=== PATIENT | male | born 1975 | race Caucasian/White ===

== ENCOUNTER → 2023-05-18 | Outpatient (CLI) | payer OTHER | END | disposition home or self-care (01) | LOC: LAB 15:04 → LAB SHORT 15:04 | DX: B35.3 Tinea pedis (principal); L03.116 Cellulitis of left lower limb | CPT/HCPCS: 87070; 87075; 87077; 87147; 87186; 87205 ==

== ENCOUNTER → 2024-03-16 | Outpatient (CLI) | payer OTHER | LOC: PLD 07:13 → LAB SHORT 07:13 | DX: D48.5 Neoplasm of uncertain behavior of skin (principal) | CPT/HCPCS: 88312 ==

== ENCOUNTER → 2024-03-29 | Outpatient (CLI) | payer OTHER | LOC: LAB 18:31 → LAB SHORT 18:31 | DX: L03.116 Cellulitis of left lower limb (principal) | CPT/HCPCS: 87070; 87077; 87147; 87186; 87205 ==

== ENCOUNTER 2024-06-15 18:42 | Emergency (ER) | payer OTHER ==
[~2024-06-15] VITALS: Ht 177.8 cm; Wt 97.5 kg
[2024-06-15 19:13] VITALS: BP 179/98
[2024-06-15] MEDS ORDERED: DEPO-TESTO200 MG/18 IM (19:14)
== END 2024-06-15 22:12 | disposition left against medical advice (07) ==
LOC: ER 18:42
DX: Z76.0 Encounter for issue of repeat prescription (principal); Z79.899 Other long term (current) drug therapy
CPT/HCPCS: 99281

== ENCOUNTER 2024-07-22 18:56 | Emergency (ER) | payer OTHER ==
[~2024-07-22] VITALS: Ht 177.8 cm; Wt 97.5 kg
[~2024-07-22 18:56] MED LIST: DEPO-TESTO200 MG/18 IM
[2024-07-22 19:01] VITALS: BP 152/85
[2024-07-22] MEDS ORDERED: Methadone HCL 10 MG TAB PO ONE (19:15)
== END 2024-07-22 19:36 | disposition home or self-care (01) ==
LOC: ER 18:56
DX: Z76.0 Encounter for issue of repeat prescription (principal)
CPT/HCPCS: 99281; A9270

== ENCOUNTER 2024-07-23 14:20 | Emergency (ER) | payer OTHER ==
[~2024-07-23] VITALS: Ht 177.8 cm; Wt 97.5 kg
[2024-07-23] MEDS ORDERED: Methadone HCL 10 MG TAB PO ONE (14:45)
[2024-07-23 14:46] VITALS: BP 143/87
== END 2024-07-23 14:58 ==
LOC: ER 14:20
DX: Z76.89 Persons encountering health services in other specified circumstances (principal); F11.90 Opioid use, unspecified, uncomplicated; Z79.899 Other long term (current) drug therapy
CPT/HCPCS: 99281; A9270

== ENCOUNTER 2024-08-08 12:34 | Emergency (ER) | payer OTHER ==
[~2024-08-08] VITALS: Ht 177.8 cm; Wt 97.5 kg
[2024-08-08 12:46] VITALS: BP 142/65
[2024-08-08] MEDS ORDERED: Methadone HCL 10 MG TAB PO ONE (14:15)
== END 2024-08-08 14:27 | disposition home or self-care (01) ==
LOC: ER 12:34
DX: Z76.89 Persons encountering health services in other specified circumstances (principal); F11.20 Opioid dependence, uncomplicated; Z79.890 Hormone replacement therapy; Z59.89 Other problems related to housing and economic circumstances
CPT/HCPCS: 99281; A9270

== ENCOUNTER 2024-09-06 01:19 | Day surgery (SDC) | payer OTHER ==
[2024-09-06] MEDS ORDERED: Lidocaine HCl 4% Cream 5 GM ONE (14:22)
== END 2024-09-06 23:00 | disposition home or self-care (01) ==
LOC: WOUND 01:19
DX: L97.812 Non-pressure chronic ulcer of other part of right lower leg with fat layer exposed (principal); L97.412 Non-pressure chronic ulcer of right heel and midfoot with fat layer exposed; L97.422 Non-pressure chronic ulcer of left heel and midfoot with fat layer exposed; I87.2 Venous insufficiency (chronic) (peripheral); I73.9 Peripheral vascular disease, unspecified; M79.7 Fibromyalgia; Z87.891 Personal history of nicotine dependence
CPT/HCPCS: A6213; A6214; A9270; G0463

== ENCOUNTER 2024-09-18 16:52 | Emergency (ER) | payer OTHER ==
[~2024-09-18] VITALS: Ht 177.8 cm; Wt 104.3 kg
[2024-09-18 17:13] VITALS: BP 182/104
[2024-09-18] MEDS ORDERED: Methadone HCL 10 MG TAB PO ONE (17:35)
== END 2024-09-18 17:46 | disposition home or self-care (01) ==
LOC: ER 16:52
DX: F11.90 Opioid use, unspecified, uncomplicated (principal); Z76.0 Encounter for issue of repeat prescription
CPT/HCPCS: 99281; A9270

== ENCOUNTER 2024-09-26 03:52 | Day surgery (SDC) | payer OTHER | END 2024-09-26 23:10 | disposition home or self-care (01) | LOC: WOUND 03:52 | DX: L97.812 Non-pressure chronic ulcer of other part of right lower leg with fat layer exposed (principal); L97.412 Non-pressure chronic ulcer of right heel and midfoot with fat layer exposed; L97.422 Non-pressure chronic ulcer of left heel and midfoot with fat layer exposed; I87.2 Venous insufficiency (chronic) (peripheral); I73.9 Peripheral vascular disease, unspecified | CPT/HCPCS: A6213; A6214; G0463 ==

== ENCOUNTER 2024-10-03 14:02 | Emergency (ER) | payer OTHER ==
[~2024-10-03] VITALS: Ht 177.8 cm; Wt 95.2 kg
[2024-10-03 14:05] VITALS: BP 158/98
[2024-10-03] MEDS ORDERED: Methadone HCL 10 MG TAB PO ONE (15:05)
== END 2024-10-03 15:40 | disposition home or self-care (01) ==
LOC: ER 14:02
DX: Z76.89 Persons encountering health services in other specified circumstances (principal); F11.91 Opioid use, unspecified, in remission; Z79.899 Other long term (current) drug therapy
CPT/HCPCS: 99281; A9270

== ENCOUNTER 2024-10-05 02:28 | Day surgery (SDC) | payer OTHER ==
[2024-10-05] MEDS ORDERED: Lidocaine HCl 4% Cream 5 GM ONE (14:00)
== END 2024-10-05 23:00 | disposition home or self-care (01) ==
LOC: WOUND 02:28
DX: L97.812 Non-pressure chronic ulcer of other part of right lower leg with fat layer exposed (principal); L97.412 Non-pressure chronic ulcer of right heel and midfoot with fat layer exposed; L97.422 Non-pressure chronic ulcer of left heel and midfoot with fat layer exposed; I87.2 Venous insufficiency (chronic) (peripheral); I73.9 Peripheral vascular disease, unspecified
CPT/HCPCS: A6213; A6214; A9270

== ENCOUNTER 2024-10-19 03:59 | Day surgery (SDC) | payer OTHER ==
[2024-10-19] MEDS ORDERED: Lidocaine HCl 4% Cream 5 GM ONE (12:55)
== END 2024-10-19 23:00 | disposition home or self-care (01) ==
LOC: WOUND 03:59
DX: L97.812 Non-pressure chronic ulcer of other part of right lower leg with fat layer exposed (principal); L97.412 Non-pressure chronic ulcer of right heel and midfoot with fat layer exposed; L97.422 Non-pressure chronic ulcer of left heel and midfoot with fat layer exposed; I87.2 Venous insufficiency (chronic) (peripheral); I73.9 Peripheral vascular disease, unspecified
CPT/HCPCS: A6213; A9270

== ENCOUNTER 2024-10-26 01:55 | Day surgery (SDC) | payer OTHER ==
[2024-10-26] MEDS ORDERED: Lidocaine HCl 4% Cream 5 GM ONE (12:45)
== END 2024-10-26 23:00 | disposition home or self-care (01) ==
LOC: WOUND 01:55
DX: L97.812 Non-pressure chronic ulcer of other part of right lower leg with fat layer exposed (principal); L97.412 Non-pressure chronic ulcer of right heel and midfoot with fat layer exposed; L97.422 Non-pressure chronic ulcer of left heel and midfoot with fat layer exposed; I87.2 Venous insufficiency (chronic) (peripheral); I73.9 Peripheral vascular disease, unspecified
CPT/HCPCS: A6213; A9270

== ENCOUNTER 2024-11-02 02:38 | Day surgery (SDC) | payer OTHER ==
[2024-11-02] MEDS ORDERED: Lidocaine HCl 4% Cream 5 GM ONE ×2 (12:50→13:24)
[2024-11-02] MEDS ORDERED: Silver Nitr/Potassium Nitrate 1 EA APPL ONE (13:25)
== END 2024-11-02 23:00 | disposition home or self-care (01) ==
LOC: WOUND 02:38
DX: L97.812 Non-pressure chronic ulcer of other part of right lower leg with fat layer exposed (principal); L97.312 Non-pressure chronic ulcer of right ankle with fat layer exposed; L97.322 Non-pressure chronic ulcer of left ankle with fat layer exposed; I87.2 Venous insufficiency (chronic) (peripheral); I73.9 Peripheral vascular disease, unspecified
CPT/HCPCS: A6213; A9270

== ENCOUNTER 2024-11-16 11:20 | Day surgery (SDC) | payer OTHER ==
[2024-11-16] MEDS ORDERED: Lidocaine HCl 4% Cream 5 GM ONE (14:07)
== END 2024-11-16 23:00 | disposition home or self-care (01) ==
LOC: WOUND 11:20
DX: L97.812 Non-pressure chronic ulcer of other part of right lower leg with fat layer exposed (principal); L97.312 Non-pressure chronic ulcer of right ankle with fat layer exposed; L97.322 Non-pressure chronic ulcer of left ankle with fat layer exposed; I87.2 Venous insufficiency (chronic) (peripheral); I73.9 Peripheral vascular disease, unspecified
CPT/HCPCS: A6213; A9270

== ENCOUNTER 2024-11-22 03:18 | Day surgery (SDC) | payer OTHER ==
[2024-11-22] MEDS ORDERED: Lidocaine HCl 4% Cream 5 GM ONE (13:16)
== END 2024-11-22 23:00 | disposition home or self-care (01) ==
LOC: WOUND 03:18
DX: L97.812 Non-pressure chronic ulcer of other part of right lower leg with fat layer exposed (principal); L97.312 Non-pressure chronic ulcer of right ankle with fat layer exposed; L97.322 Non-pressure chronic ulcer of left ankle with fat layer exposed; I87.2 Venous insufficiency (chronic) (peripheral); I73.9 Peripheral vascular disease, unspecified
CPT/HCPCS: A6213; A9270; G0463

== ENCOUNTER 2024-12-15 02:52 | Day surgery (SDC) | payer OTHER ==
[2024-12-15] MEDS ORDERED: Lidocaine HCl 4% Cream 5 GM ONE (14:37)
== END 2024-12-15 23:00 | disposition home or self-care (01) ==
LOC: WOUND 02:52
DX: L97.812 Non-pressure chronic ulcer of other part of right lower leg with fat layer exposed (principal); L97.412 Non-pressure chronic ulcer of right heel and midfoot with fat layer exposed; L97.422 Non-pressure chronic ulcer of left heel and midfoot with fat layer exposed; I87.2 Venous insufficiency (chronic) (peripheral); I73.9 Peripheral vascular disease, unspecified
CPT/HCPCS: A6213; A9270

== ENCOUNTER 2024-12-30 15:20 | Emergency (ER) | payer OTHER ==
[~2024-12-30] VITALS: Ht 177.8 cm; Wt 99.8 kg
[2024-12-30 15:23] VITALS: BP 163/92
[2024-12-30] MEDS ORDERED: Methadone HCL 10 MG TAB PO ONE (15:30)
== END 2024-12-30 15:30 | disposition home or self-care (01) ==
LOC: ER 15:20
DX: Z76.0 Encounter for issue of repeat prescription (principal); Z79.899 Other long term (current) drug therapy
CPT/HCPCS: 99281; A9270

== ENCOUNTER 2025-01-23 15:26 | Emergency (ER) | payer OTHER ==
[~2025-01-23] VITALS: Ht 177.8 cm; Wt 95.2 kg
[2025-01-23 15:33] VITALS: BP 155/96
== END 2025-01-23 16:38 | disposition home or self-care (01) ==
LOC: ER 15:26
DX: Z76.89 Persons encountering health services in other specified circumstances (principal); Z79.890 Hormone replacement therapy; Z79.891 Long term (current) use of opiate analgesic
CPT/HCPCS: 99281; A9270

== ENCOUNTER 2025-02-01 15:13 | Emergency (ER) | payer OTHER ==
[~2025-02-01] VITALS: Ht 177.8 cm; Wt 117.0 kg
[2025-02-01 15:47] VITALS: BP 137/97
== END 2025-02-01 17:03 | disposition home or self-care (01) ==
LOC: ER 15:13
DX: Z76.89 Persons encountering health services in other specified circumstances (principal); Z79.899 Other long term (current) drug therapy
CPT/HCPCS: 99281; A9270

== ENCOUNTER → 2025-03-20 | Outpatient (CLI) | payer OTHER | END | disposition home or self-care (01) | LOC: LAB SHORT 13:30 → LAB 13:30 | DX: L97.919 Non-pressure chronic ulcer of unspecified part of right lower leg with unspecified severity (principal) | CPT/HCPCS: 87070; 87075; 87077; 87186; 87205 ==

== ENCOUNTER 2025-04-07 18:12 | Emergency (ER) | payer OTHER ==
[~2025-04-07] VITALS: Ht 177.8 cm; Wt 93.0 kg
[2025-04-07 19:04] VITALS: BP 170/108
== END 2025-04-07 20:53 | disposition home or self-care (01) ==
LOC: ER 18:12
DX: F11.90 Opioid use, unspecified, uncomplicated (principal); Z76.0 Encounter for issue of repeat prescription
CPT/HCPCS: 99281; A9270

== ENCOUNTER 2025-04-09 01:22 | Day surgery (SDC) | payer OTHER ==
[2025-04-09] MEDS ORDERED: Lidocaine HCl 4% Cream 5 GM ONE (13:20)
== END 2025-04-09 23:00 | disposition home or self-care (01) ==
LOC: WOUND 01:22
DX: I87.313 Chronic venous hypertension (idiopathic) with ulcer of bilateral lower extremity (principal); L97.822 Non-pressure chronic ulcer of other part of left lower leg with fat layer exposed; L97.812 Non-pressure chronic ulcer of other part of right lower leg with fat layer exposed; L97.322 Non-pressure chronic ulcer of left ankle with fat layer exposed; I87.2 Venous insufficiency (chronic) (peripheral)
CPT/HCPCS: A9270; G0463

== ENCOUNTER 2025-04-12 00:31 | Day surgery (SDC) | payer OTHER | END 2025-04-12 22:30 | disposition home or self-care (01) | LOC: WOUND 00:31 | DX: I87.313 Chronic venous hypertension (idiopathic) with ulcer of bilateral lower extremity (principal); L97.922 Non-pressure chronic ulcer of unspecified part of left lower leg with fat layer exposed; L97.912 Non-pressure chronic ulcer of unspecified part of right lower leg with fat layer exposed; I87.2 Venous insufficiency (chronic) (peripheral); Z72.0 Tobacco use | CPT/HCPCS: A9270 ==

== ENCOUNTER 2025-04-26 03:02 | Day surgery (SDC) | payer OTHER ==
[2025-04-26] MEDS ORDERED: Lidocaine HCl 4% Cream 5 GM ONE (14:04)
== END 2025-04-26 23:00 | disposition home or self-care (01) ==
LOC: WOUND 03:02
DX: I87.313 Chronic venous hypertension (idiopathic) with ulcer of bilateral lower extremity (principal); L97.812 Non-pressure chronic ulcer of other part of right lower leg with fat layer exposed; L97.322 Non-pressure chronic ulcer of left ankle with fat layer exposed; L97.822 Non-pressure chronic ulcer of other part of left lower leg with fat layer exposed; I87.2 Venous insufficiency (chronic) (peripheral); Z72.0 Tobacco use; E29.1 Testicular hypofunction; F11.20 Opioid dependence, uncomplicated; Z13.220 Encounter for screening for lipoid disorders; Z13.6 Encounter for screening for cardiovascular disorders
CPT/HCPCS: 36415; 80053; 80061; 84403; 85025; A9270

== ENCOUNTER 2025-05-03 00:25 | Day surgery (SDC) | payer OTHER ==
[2025-05-03] MEDS ORDERED: Lidocaine HCl 4% Cream 5 GM ONE (13:31)
== END 2025-05-03 23:00 | disposition home or self-care (01) ==
LOC: WOUND 00:25
DX: I87.313 Chronic venous hypertension (idiopathic) with ulcer of bilateral lower extremity (principal); L97.812 Non-pressure chronic ulcer of other part of right lower leg with fat layer exposed; L97.322 Non-pressure chronic ulcer of left ankle with fat layer exposed; L97.822 Non-pressure chronic ulcer of other part of left lower leg with fat layer exposed; I87.2 Venous insufficiency (chronic) (peripheral); Z72.0 Tobacco use
CPT/HCPCS: A9270

== ENCOUNTER 2025-05-06 10:30 | Emergency (ER) | payer OTHER ==
[~2025-05-06] VITALS: Ht 177.8 cm; Wt 93.0 kg
[2025-05-06 10:33] VITALS: BP 160/101
== END 2025-05-06 12:20 | disposition home or self-care (01) ==
LOC: ER 10:30
DX: Z76.89 Persons encountering health services in other specified circumstances (principal); F11.20 Opioid dependence, uncomplicated; Z79.890 Hormone replacement therapy
CPT/HCPCS: 99281; A9270

== ENCOUNTER 2025-05-10 02:43 | Day surgery (SDC) | payer OTHER ==
[2025-05-10] MEDS ORDERED: Lidocaine HCl 4% Cream 5 GM ONE (13:59)
== END 2025-05-10 23:00 | disposition home or self-care (01) ==
LOC: WOUND 02:43
DX: I87.313 Chronic venous hypertension (idiopathic) with ulcer of bilateral lower extremity (principal); L97.812 Non-pressure chronic ulcer of other part of right lower leg with fat layer exposed; L97.322 Non-pressure chronic ulcer of left ankle with fat layer exposed; L97.822 Non-pressure chronic ulcer of other part of left lower leg with fat layer exposed; I87.2 Venous insufficiency (chronic) (peripheral); Z72.0 Tobacco use
CPT/HCPCS: A9270

== ENCOUNTER 2025-05-16 01:36 | Day surgery (SDC) | payer OTHER ==
[2025-05-16] MEDS ORDERED: Lidocaine HCl 4% Cream 5 GM ONE (12:34)
[2025-05-17] MEDS ORDERED: METH10 PO (17:23)
== END 2025-05-16 23:00 | disposition home or self-care (01) ==
LOC: WOUND 01:36
DX: I87.313 Chronic venous hypertension (idiopathic) with ulcer of bilateral lower extremity (principal); L97.822 Non-pressure chronic ulcer of other part of left lower leg with fat layer exposed; L97.812 Non-pressure chronic ulcer of other part of right lower leg with fat layer exposed; L97.322 Non-pressure chronic ulcer of left ankle with fat layer exposed
CPT/HCPCS: A6213; A9270; G0463

== ENCOUNTER 2025-05-17 16:56 | Emergency (ER) | payer OTHER ==
[~2025-05-17] VITALS: Ht 177.8 cm; Wt 96.2 kg
[2025-05-17 17:20] VITALS: BP 153/81
[2025-05-17] MEDS ORDERED: METH10 PO (17:23)
== END 2025-05-17 18:08 | disposition home or self-care (01) ==
LOC: ER 16:56
DX: F11.90 Opioid use, unspecified, uncomplicated (principal); Z76.0 Encounter for issue of repeat prescription; Z59.89 Other problems related to housing and economic circumstances
CPT/HCPCS: 99281; A9270

== ENCOUNTER 2025-05-31 00:30 | Day surgery (SDC) | payer OTHER ==
[~2025-05-31 00:30] MED LIST changes: +METH10 PO
[2025-05-31] MEDS ORDERED: Lidocaine HCl 4% Cream 5 GM ONE (12:50)
== END 2025-05-31 23:00 | disposition home or self-care (01) ==
LOC: WOUND 00:30
DX: I87.313 Chronic venous hypertension (idiopathic) with ulcer of bilateral lower extremity (principal); L97.822 Non-pressure chronic ulcer of other part of left lower leg with fat layer exposed; L97.812 Non-pressure chronic ulcer of other part of right lower leg with fat layer exposed; L97.322 Non-pressure chronic ulcer of left ankle with fat layer exposed; I87.2 Venous insufficiency (chronic) (peripheral); Z72.0 Tobacco use
CPT/HCPCS: A9270

== ENCOUNTER 2025-05-31 14:02 | Emergency (ER) | payer OTHER ==
[~2025-05-31] VITALS: Ht 175.3 cm; Wt 96.2 kg
[2025-05-31 14:06] VITALS: BP 152/102
== END 2025-05-31 14:44 | disposition home or self-care (01) ==
LOC: ER 14:02
DX: F11.90 Opioid use, unspecified, uncomplicated (principal); Z76.0 Encounter for issue of repeat prescription
CPT/HCPCS: 99281; A9270

== ENCOUNTER 2025-06-06 01:11 | Day surgery (SDC) | payer OTHER | END 2025-06-06 23:00 | disposition home or self-care (01) | LOC: WOUND 01:11 | DX: I87.313 Chronic venous hypertension (idiopathic) with ulcer of bilateral lower extremity (principal); L97.912 Non-pressure chronic ulcer of unspecified part of right lower leg with fat layer exposed; L97.922 Non-pressure chronic ulcer of unspecified part of left lower leg with fat layer exposed; L97.322 Non-pressure chronic ulcer of left ankle with fat layer exposed; I87.2 Venous insufficiency (chronic) (peripheral); Z72.0 Tobacco use ==

== ENCOUNTER 2025-06-18 02:46 | Day surgery (SDC) | payer OTHER ==
[2025-06-18] MEDS ORDERED: Lidocaine HCl 4% Cream 5 GM ONE (14:32)
== END 2025-06-18 23:00 | disposition home or self-care (01) ==
LOC: WOUND 02:46
DX: I87.313 Chronic venous hypertension (idiopathic) with ulcer of bilateral lower extremity (principal); L97.322 Non-pressure chronic ulcer of left ankle with fat layer exposed; L97.812 Non-pressure chronic ulcer of other part of right lower leg with fat layer exposed; L97.822 Non-pressure chronic ulcer of other part of left lower leg with fat layer exposed; I87.2 Venous insufficiency (chronic) (peripheral); Z72.0 Tobacco use
CPT/HCPCS: A9270